=== PATIENT | female | born 1945 | race Caucasian/White ===

== ENCOUNTER 2019-06-13 14:11 | Emergency (ER) | payer OTHER ==
[~2019-06-13] VITALS: Ht 152.4 cm; Wt 108.9 kg
[~2019-06-13 14:11] MED LIST: AMOXICILLIN500 MG PO; AVELOX400 MG PO; BUMETANIDE1 MG PO; BUMEX; CIPROFLOXACIN500 MG PO; CYCLOBENZAPRINE10 MG PO; D3-5050000 IU PO; FLAGYL500 MG PO; JANUMET; JANUMET 500 MG-1 TA1 PO; JANUMET 500 MG-1 TAB PO; KCL; LOPRESSOR25 MG PO; LOPRESSOR50 MG PO; Lopressor25 MG PO; NABUMETONE500 M1 PO; NAPROSYN EC375 MG PO; NAPROSYN500 MG PO; NAPROXIN; OMEPRAZOLE MAGN20 MG PO; PRAVAS; PRAVASTATIN SOD20 MG PO; PREDNISONE10 MG PO; [UNRECOGNIZED DRUG - OTHER] OT
[2019-06-13] MEDS ORDERED: SEPTDS PO (14:51)
[2019-06-13] MEDS ORDERED: CEFADROXIL500 M1 PO (14:51)
== END 2019-06-13 15:06 | disposition home or self-care (01) ==
LOC: ED 14:11
DX: L02.211 Cutaneous abscess of abdominal wall (principal); E11.9 Type 2 diabetes mellitus without complications; Z91.041 Radiographic dye allergy status; Z88.5 Allergy status to narcotic agent; Z88.8 Allergy status to other drugs, medicaments and biological substances; Z79.899 Other long term (current) drug therapy; Z90.710 Acquired absence of both cervix and uterus

== ENCOUNTER 2020-11-23 13:41 | Emergency (ER) | payer OTHER ==
[~2020-11-23] VITALS: Ht 152.4 cm; Wt 104.3 kg
[~2020-11-23 13:41] MED LIST changes: +CEFADROXIL500 M1 PO; +SEPTDS PO
[2020-11-23] MEDS ORDERED: CEPHALEXIN500 M1 PO (16:35)
== END 2020-11-23 16:50 | disposition home or self-care (01) ==
LOC: ED 13:41
DX: L03.032 Cellulitis of left toe (principal); I10 Essential (primary) hypertension; E11.9 Type 2 diabetes mellitus without complications; K21.9 Gastro-esophageal reflux disease without esophagitis; Z88.8 Allergy status to other drugs, medicaments and biological substances; Z91.041 Radiographic dye allergy status; Z88.5 Allergy status to narcotic agent; Z79.899 Other long term (current) drug therapy; Z90.710 Acquired absence of both cervix and uterus